=== PATIENT | male | born 1990 | race Caucasian/White ===

== ENCOUNTER → 2023-10-28 06:27 | Day surgery (SDC) | payer OTHER, SELFPAY | LOC: GI 06:27 | PROVIDERS: ATTENDING PHYSICIAN Internal Medicine Gastroenterology | DX: R12 Heartburn (principal); K44.9 Diaphragmatic hernia without obstruction or gangrene; K31.7 Polyp of stomach and duodenum; K22.89 Other specified disease of esophagus; K20.90 Esophagitis, unspecified without bleeding | CPT/HCPCS: 43239; 88305 ==